=== PATIENT | female | born 1980 | race Caucasian/White ===

== ENCOUNTER 2020-01-23 20:14 | Emergency (ER) | payer OTHER, BC ==
[~2020-01-23] VITALS: Ht 157.5 cm; Wt 79.4 kg
[~2020-01-23 20:14] MED LIST: CIPROFLOXACIN500 M1 PO; ESTRACE0.5 MG PO; FLAGYL500 MG PO; NORCO 5-325 TA1 EACH PO
[2020-01-23 20:43] VITALS: BP 140/96
[2020-01-23] MEDS ORDERED: IBUPROFEN 800800 M1 PO (20:44)
== END 2020-01-23 20:50 | disposition home or self-care (01) ==
LOC: M.ERS 20:14
DX: G56.22 Lesion of ulnar nerve, left upper limb (principal); Z88.8 Allergy status to other drugs, medicaments and biological substances; Z79.899 Other long term (current) drug therapy; Z90.710 Acquired absence of both cervix and uterus